=== PATIENT | male | born 1955 | race Caucasian/White ===

== ENCOUNTER 2016-04-07 00:47 | Inpatient (IN) | payer OTHER ==
[2016-04-07] VITALS (22 sets, daily range): BP systolic 103–174; RESP 18–33; TEMP 97.7–98.5; Ht 175.3 cm; Wt 103.7 kg
[~2016-04-07] VITALS: Ht 175.3 cm; Wt 103.7 kg
[2016-04-07] MEDS ORDERED: METHYLPRED SOD SUCC 125 MG/2 ML VIAL ONE (01:06)
[2016-04-07] MEDS ORDERED: DUONEB INH ONE ×3 (01:14)
[2016-04-07] MEDS ORDERED: ACETAMINOPHEN 325 MG TAB ONE (01:15)
[2016-04-07] MEDS ORDERED: CEFTRIAXONE 1 GM VIAL ONE (01:28)
[2016-04-07] MEDS ORDERED: AZITHROMYCIN 500 MG VIAL IV ONE (01:28)
[2016-04-07] MEDS ORDERED: SODIUM CHLORIDE 0.9% 100 ML IV ONE (01:29)
[2016-04-07] MEDS ORDERED: SODIUM CHLORIDE 0.9% 250 ML IV ONE (01:29)
[2016-04-07] MEDS ORDERED: NICOTINE 21 MG/24 HR TRANSDERM PRN (03:40)
[2016-04-07] MEDS ORDERED: GUAIFEN/DM 10 ML UDC PO PRN (03:40)
[2016-04-07] MEDS ORDERED: ALU/MAG/SIM 30 ML UDC PO PRN (03:40)
[2016-04-07] MEDS ORDERED: ACETAMINOPHEN 325 MG TAB PO PRN (03:40)
[2016-04-07] MEDS ORDERED: BISACODYL EC 5 MG TAB PO PRN (03:40)
[2016-04-07] MEDS ORDERED: SALINE FLUSH 10 ML FLUSH PRN (03:40)
[2016-04-07] MEDS ORDERED: ONDANSETRON 4 MG VIAL IV PRN (03:40)
[2016-04-07] MEDS ORDERED: MAG HYDROX 30 ML UDC PO PRN (03:40)
[2016-04-07] MEDS ORDERED: NEB-ALBUTEROL 2.5 MG/3 ML INH PRN (03:40)
[2016-04-07] MEDS ORDERED: GLUCAGON 1 MG VIAL IM PRN (03:40)
[2016-04-07] MEDS ORDERED: BISACODYL 10 MG SUPP RECTAL PRN (03:40)
[2016-04-07] MEDS ORDERED: DEXTROSE 50% SYRINGE 50 ML IV PRN (03:40)
[2016-04-07] MEDS ORDERED: PHARMACY TO DOSE IV SCH (03:40)
[2016-04-07] MEDS: VANCOMYCIN 2,000 MG in SODIUM CHLORIDE 0.9% 500 ML IV SCH ×2 (05:48→17:22)
[2016-04-07] MEDS: SODIUM CHLORIDE 0.9% 1,000 ML IV SCH ×2 (05:51→17:17)
[2016-04-07] MEDS: SODIUM CHLORIDE 0.9% FLUSH BAG 500 ML IV SCH (05:51)
[2016-04-07] MEDS ORDERED: METHYLPRED SOD SUCC 125 MG/2 ML VIAL IV SCH (08:00)
[2016-04-07] MEDS: PIPERACIL/TAZO 3.375GM/50ML 50 ML IV SCH ×3 (08:18→19:31)
[2016-04-07] MEDS: SALINE FLUSH 10 ML FLUSH SCH ×2 (08:54→20:22)
[2016-04-07] MEDS: GUAIFENESIN ER 600 MG TABCR PO SCH ×2 (08:55→20:21)
[2016-04-07] MEDS: ENOXAPARIN 40 MG/0.4 ML SYR SUBQ SCH (08:56)
[2016-04-07] MEDS: DUONEB INH SCH ×3 (17:41→23:43)
[2016-04-07] MEDS ORDERED: MISSING DOSE XX ONE (20:20)
[2016-04-07] MEDS: TEMAZEPAM 15 MG CAP PO PRN (22:42)
[2016-04-08] MEDS ORDERED: MISSING DOSE XX ONE (00:45)
[2016-04-08] MEDS: PIPERACIL/TAZO 3.375GM/50ML 50 ML IV SCH ×5 (00:57→23:08)
[2016-04-08 03:00] VITALS: BP_SYST 102; RESP 18; TEMP 97.7
[2016-04-08] MEDS: SODIUM CHLORIDE 0.9% 1,000 ML IV SCH ×2 (04:37→16:01)
[2016-04-08] MEDS: VANCOMYCIN 2,000 MG in SODIUM CHLORIDE 0.9% 500 ML IV SCH ×2 (04:40→17:06)
[2016-04-08] MEDS: SODIUM CHLORIDE 0.9% FLUSH BAG 500 ML IV SCH (05:31)
[2016-04-08] MEDS: DUONEB INH SCH ×4 (06:32→23:46)
[2016-04-08 07:14] VITALS: BP_SYST 109; RESP 18; TEMP 98
[2016-04-08] MEDS: SALINE FLUSH 10 ML FLUSH SCH ×2 (08:00→19:36)
[2016-04-08] MEDS: GUAIFENESIN ER 600 MG TABCR PO SCH ×2 (08:37→20:55)
[2016-04-08] MEDS: ENOXAPARIN 40 MG/0.4 ML SYR SUBQ SCH (08:37)
[2016-04-08] MEDS: PREDNISONE 20 MG TAB PO SCH (08:37)
[2016-04-08 12:07] VITALS: BP_SYST 116; RESP 16; TEMP 98.3
[2016-04-08 16:02] VITALS: BP_SYST 110; RESP 18; TEMP 98.3
[2016-04-08] MEDS ORDERED: OPTIRAY 350 100 ML VIAL HMH IV ONE (17:17)
[2016-04-08 19:18] VITALS: BP_SYST 136; RESP 18; TEMP 98.2
[2016-04-08] MEDS: TEMAZEPAM 15 MG CAP PO PRN (20:55)
[2016-04-08 23:00] VITALS: BP_SYST 120; RESP 18; TEMP 98.2
[2016-04-09] VITALS (35 sets, daily range): BP systolic 106–187; RESP 18–47; TEMP 97.6–98.3
[2016-04-09] MEDS: VANCOMYCIN 2,000 MG in SODIUM CHLORIDE 0.9% 500 ML IV SCH ×2 (01:03→10:51)
[2016-04-09] MEDS: SODIUM CHLORIDE 0.9% FLUSH BAG 500 ML IV SCH (05:05)
[2016-04-09] MEDS: PIPERACIL/TAZO 3.375GM/50ML 50 ML IV SCH ×2 (05:05→11:13)
[2016-04-09] MEDS: SODIUM CHLORIDE 0.9% 1,000 ML IV SCH (05:06)
[2016-04-09] MEDS: NEB-BUDESONIDE 0.5 MG INH SCH ×2 (06:27→18:54)
[2016-04-09] MEDS: NEB-BROVANA 15 MCG/2 ML INH SCH ×2 (06:27→18:54)
[2016-04-09] MEDS: DUONEB INH SCH ×4 (06:28→18:54)
[2016-04-09] MEDS: PREDNISONE 20 MG TAB PO SCH (09:20)
[2016-04-09] MEDS: GUAIFENESIN ER 600 MG TABCR PO SCH (09:20)
[2016-04-09] MEDS: SALINE FLUSH 10 ML FLUSH SCH (09:20)
[2016-04-09] MEDS: ENOXAPARIN 40 MG/0.4 ML SYR SUBQ SCH (09:21)
[2016-04-09] MEDS ORDERED: MISSING DOSE XX ONE ×2 (09:30→17:30)
[2016-04-09] MEDS ORDERED: LEVOFLOXACIN 750 MG/150 ML 150 ML IV SCH (10:00)
[2016-04-09] MEDS ORDERED: PANTOPRAZOLE 40 MG TAB PO SCH (10:11)
[2016-04-09] MEDS ORDERED: LEVEMIR INSULIN SUBQ SCH (10:35)
[2016-04-09] MEDS ORDERED: SODIUM CHLORIDE 0.9% 1,000 ML IV SCH (10:35)
[2016-04-09] MEDS: SUCRALFATE 1GM/10ML SUSP PO SCH ×2 (11:05→16:00)
[2016-04-09] MEDS ORDERED: METOCLOPRAMIDE 10 MG/2 ML VIAL IV PUSH SCH (12:00)
[2016-04-09] MEDS ORDERED: PROPOFOL 100 ML 100 ML IV ONE (15:52)
[2016-04-09] MEDS: PROPOFOL 100 ML 100 ML IV PRN ×2 (16:00→19:52)
[2016-04-09] MEDS ORDERED: PROPOFOL 100 ML 100 ML IV PRN (16:15)
[2016-04-09] MEDS ORDERED: SUCCINYLCHOLINE 20 MG/ML VL ONE (16:26)
[2016-04-09] MEDS ORDERED: ETOMIDATE 2 MG/ML VIAL IV ONE (16:26)
[2016-04-09] MEDS ORDERED: MIDAZOLAM 2 MG/2 ML INJ ONE (16:26)
[2016-04-09] MEDS ORDERED: CISATRACURIUM 100 MG/250 ML 250 ML IV SCH (16:35)
[2016-04-09] MEDS: FENTANYL DRIP 50 ML IV PRN ×2 (16:50→19:51)
[2016-04-09] MEDS ORDERED: GUAIFENESIN ER 600 MG TABCR PO SCH (21:00)
[2016-04-10] MEDS ORDERED: CHLORHEXIDINE 0.12% ORAL CARE FOR VENT PATIENTS 15 ML SWAB SCH
[2016-04-10] MEDS ORDERED: SODIUM CHLORIDE 0.9% FLUSH BAG 500 ML IV SCH (06:00)
== END 2016-04-09 21:03 | disposition short-term general hospital (02) | DRG 871 ==
LOC: ENRESERVDT → ENRESERVTM → ER 00:47 → ENPENDDIS 02:04 → EMR 02:04 → ICU 04:09 → 4THE 20:00 → CCU 04-09 15:34
PROVIDERS: ADMIT Internal Medicine; ATTEND Internal Medicine
PROC: 5A1935Z Respiratory Ventilation, Less than 24 Consecutive Hours (ICD-10-PCS; principal; 2016-04-09)
PROC: 0BH17EZ Insertion of Endotracheal Airway into Trachea, Via Natural or Artificial Opening (ICD-10-PCS; 2016-04-09)
PROC: 0B968ZX Drainage of Right Lower Lobe Bronchus, Via Natural or Artificial Opening Endoscopic, Diagnostic (ICD-10-PCS; 2016-04-09)
CPT/HCPCS: 31622; 36600; 71010; 71260; 87071; 87102; 87116; 87205; 87206; 88108; 93005; 94002; 94640; 94660; 94799; 99223; 99232; 99291